=== PATIENT | male | born 1945 | race Caucasian/White ===

== ENCOUNTER 2019-07-20 12:49 | Emergency (ER) | payer BC, MEDICARE ==
[2019-07-20] MEDS ORDERED: Acetaminophen/HYDROcodone 325-5 MG Tab PO ONE (13:31)
--- NOTE | 2019-07-20 13:33 | EDM.PDOC ---
ED HPI GENERAL MEDICAL PROBLEM - General Chief Complaint: Upper Extremity Injury/Pain Stated Complaint: R SHOULDER INJURY Time Seen by Provider: 07/20/19 13:20 Source of Information: Reports: Patient History Limitations: Reports: No Limitations - History of Present Illness INITIAL COMMENTS - FREE TEXT/NARRATIVE: pt arrived with pain in the rt shoulder. He was carrying a piece of sheet rock and missed a step. He fell directly on the shouulder and is having pain in the post portion of the shoudler. Onset: Today, Sudden Duration: Hour(s): Location: Reports: Upper Extremity, Right Associated Symptoms: Reports: Other (pt has severe pain in the shoulder. He is not able to lift the arm. ) - Related Data Allergies Allergy/AdvReac Type Severity Reaction Status Date / Time No Known Allergies Allergy Verified 07/20/19 13:24 Home Meds: Home Meds Warfarin [Coumadin] 5 mg PO ASDIRECTED 07/20/19 [History] Review of Systems - Review of Systems Review Of Systems: See Below Constitutional: Reports: No Symptoms Eyes: Reports: No Symptoms Ears: Reports: No Symptoms Nose: Reports: No Symptoms Mouth/Throat: Reports: No Symptoms Respiratory: Reports: No Symptoms Cardiovascular: Reports: No Symptoms GI/Abdominal: Reports: No Symptoms Genitourinary: Reports: No Symptoms Musculoskeletal: Reports: Arm Pain, Other (pt has severe pain in the shoulder. ) Skin: Reports: No Symptoms ED EXAM, GENERAL - Physical Exam Exam: See Below Free Text/Narrative:: pt arrived with pain in the post portion of the shoulder. He is not able to lift his arm. He hit directly on the shoulder. He had a brief period because of the severe pain that his thinking was foggy. He did not hit his head. Exam Limited By: No Limitations General Appearance: Alert, Anxious, Severe Distress Extremities: Other (pt is very tender over the area of the acroim He has slight swelling. He had a xray which shows a fracture of the tip of the acroim) Neurological: Alert, Oriented, Normal Cognition Course - Vital Signs Last Recorded V/S: Last Vital Signs Temp 36.4 C 07/20/19 13:43 Pulse 89 07/20/19 13:43 Resp 16 07/20/19 13:43 BP 171/102 H 07/20/19 13:43 Pulse Ox 97 07/20/19 13:43 - Orders/Labs/Meds Labs: Laboratory Tests 07/20/19 Range/Units 14:00 PT 22.1 H (9.5-12.0) sec INR 2.14 H (0.80-1.20) Meds: Medications Discontinued Medications Generic Name Dose Route Start Last Admin Trade Name Freq PRN Reason Stop Dose Admin Hydrocodone Bitart/Acetaminophen 1 tab 07/20/19 13:31 07/20/19 13:50 [place] 325-5 Mg PO 07/20/19 13:32 Not Given ONETIME ONE - Re-Assessments/Exams Free Text/Narrative Re-Assessment/Exam: 07/20/19 14:30 xray revealed the fracture. of the acromim. Dr Andersen saw the pt and felt that he should be treated with a sling and PT. He will be followed by ortho. Departure - Departure Time of Disposition: 14:31 Disposition: Home, Self-Care 01 Condition: Fair Clinical Impression: Fracture of acromial process of right scapula - Discharge Information Referrals: PCP,None [Primary Care Provider] - Forms: ED Department Discharge Care Plan Goals: sling , Ice to the area for next 48 hours, motrin 600mg qid, norco 5/325 q6h prn for pain Sepsis Event Note - Focused Exam Vital Signs: Vital Signs Temp Pulse Resp BP Pulse Ox 07/20/19 13:43 36.4 C 89 16 171/102 H 97 07/20/19 13:17 36.4 C 89 16 171/102 H 97 Date Exam was Performed: 07/20/19 Time Exam was Performed: 14:34
--- NOTE | 2019-07-20 14:09 | CR ---
Shoulder Comp Rt CLINICAL HISTORY: Fall, pain, immobility FINDINGS: Patient is moderate osteoarthritic change in the glenohumeral joint. There is a large spur off the inferior glenoid. There is a fracture off the posterior lateral aspect of the acromium with slight separation. This may be from previous impaction from the humeral head. 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
== END 2019-07-20 14:44 | disposition home or self-care (01) ==
LOC: JP.ED 12:49
DX: S42.121A Displaced fracture of acromial process, right shoulder, initial encounter for closed fracture (principal); W10.9XXA Fall (on) (from) unspecified stairs and steps, initial encounter
CPT/HCPCS: 36415; 73030-26-RT; 73030-RT; 85610; 99283; 99283-25

== ENCOUNTER 2024-02-17 07:58 | Day surgery (SDC) | payer MEDICARE ==
[2024-02-17] MEDS ORDERED: Succinylcholine 200 MG/10 ML MDV ONE (08:27)
[2024-02-17] MEDS ORDERED: Propofol 200 MG/20 ML SDV ONE (08:27)
[2024-02-17] MEDS ORDERED: fentaNYL 250 MCG/5 ML SDV ONE (08:27)
[2024-02-17] MEDS ORDERED: Glycopyrrolate 0.2 MG/ML 5 ML MDV ONE (08:27)
[2024-02-17] MEDS ORDERED: Ondansetron 4 MG/2 ML SDV ONE (08:27)
[2024-02-17] MEDS ORDERED: Neostigmine Methylsulfate 10 MG/10 ML MDV ONE (08:27)
[2024-02-17] MEDS ORDERED: Dexamethasone 4 MG/ML SDV ONE (08:27)
[2024-02-17] MEDS ORDERED: Rocuronium 50 MG/5 ML Vial ONE (08:27)
[2024-02-17 08:34] LABS: HEMATOCRIT 40.3 % (38.4-49.7); HEMOGLOBIN 14.3 g/dL (12.9-16.9); MEAN CORPUSCULAR HEMOGLOBIN 36.8 pg (31.6-35.5); MEAN CORPUSCULAR HGB CONC 35.5 g/dL (31.6-35.5); MEAN CORPUSCULAR VOLUME 103.6 fL (81.4-99.0); RED BLOOD CELL COUNT 3.89 M/uL (4.14-5.76); WHITE BLOOD CELL COUNT,WBC 6.6 K/uL (3.2-11.0)
[2024-02-17 08:55] LABS: A/G RATIO 0.9 (1.2-2.2); ALANINE AMINOTRANSFERASE,ALT 25 U/L (12-78); ALBUMIN 3.6 g/dL (3.4-5.0); ALKALINE PHOSPHATASE 98 U/L (46-116); ANION GAP 14.2 mmol/L (5.0-14.0); ASPARTATE AMNIOTRANSFERASE,AST 18 U/L (15-37); BILIRUBIN TOTAL 0.5 mg/dL (0.2-1.0); BLOOD UREA NITROGEN,BUN 22 mg/dL (7-18); CARBON DIOXIDE,CO2 24 mmol/L (21-32); CHLORIDE,CL 104 mmol/L (100-108); CREATININE 1.2 mg/dL (0.8-1.3); EST CRCL DRUG DOSING (CG) 53.02 mL/min; ESTIMATED GFR 63 mL/min (>60); GLUCOSE RANDOM 105 mg/dL (74-106); POTASSIUM,K 4.2 mmol/L (3.6-5.2); PROTEIN TOTAL,TP 7.7 g/dL (6.4-8.2); SODIUM,NA 138 mmol/L (140-148)
[2024-02-17] MEDS: Lactated Ringers 1,000 ML IV SCH (09:08)
[2024-02-17] MEDS: metroNIDAZOLE/Normal Saline 500 MG in Premix Bag 1 BAG IV ONE (09:30)
[2024-02-17] MEDS: ceFAZolin 2 GM in Premix Bag 1 BAG IV ONE (10:25)
[2024-02-17] MEDS ORDERED: Labetalol 20 MG/4 ML Syringe ONE (10:57)
[2024-02-17] MEDS: Bupivacaine 0.5%/EPINEPHrine 1:200,000 50 ML MDV ONE (11:15)
[2024-02-17] MEDS: Ropivacaine 44 ML, dexAMETHasone 8 MG, EPINEPHrine 0.4 MG, Sodium Chloride 0.9% 33.6 ML NERVRT SCH (11:23)
[2024-02-17] MEDS ORDERED: Lactated Ringers 1,000 ML ONE (11:34)
[2024-02-17] MEDS ORDERED: fentaNYL 100 MCG/2 ML SDV ONE (11:35)
[2024-02-17] MEDS: Acetaminophen/HYDROcodone 325-5 MG Tab PO PRN (13:23)
== END 2024-02-17 14:19 | disposition home or self-care (01) ==
LOC: JP.SDS 07:58
PROVIDERS: ATTEND Surgery
DX: K40.30 Unilateral inguinal hernia, with obstruction, without gangrene, not specified as recurrent (principal); F17.200 Nicotine dependence, unspecified, uncomplicated
CPT/HCPCS: 36415; 49650; 80053; 85027; A9270; C1781; J0171; J0330; J0690; J1100; J1596; J1836; J1920; J2405; J2704; J2710; J2795; J3010; J3490; J7120